=== PATIENT | female | born 1950 | race African-American/Black ===

== ENCOUNTER 2017-02-10 18:44 | Emergency (ER) | payer MEDICARE ==
[~2017-02-10] VITALS: Ht 170.2 cm; Wt 90.7 kg
[2017-02-10 19:41] LABS: BASO # 0.1 x10^3/uL (0.0-0.2); BASO % 1 % (0-3); EOS % 3 % (0-3); HEMATOCRIT 39.2 % (36.0-47.0); HEMOGLOBIN 13.5 g/dL (12.0-15.5); LYMPH # 3.5 x10^3/uL (1.0-4.8); LYMPH % 37 % (24-48); MEAN CORPUSCULAR HEMOGLOBIN 28 pg (25-35); MEAN CORPUSCULAR HGB CONC 34 g/dL (31-37); MEAN CORPUSCULAR VOLUME 81 fL (79-100); MONO % 8 % (0-9); NEUT % 52 % (31-73); PLATELET COUNT 299 x10^3/uL (140-400); RED BLOOD COUNT 4.84 x10^6/uL (3.50-5.40); RED CELL DISTRIBUTION WIDTH 14.3 % (11.5-14.5); WHITE BLOOD COUNT 9.5 x10^3/uL (4.0-11.0)
[2017-02-10 19:51] LABS: PROTHROMBIN TIME PATIENT 12.3 SEC (11.7-14.0)
--- NOTE | 2017-02-10 19:57 | PHYS DOC ---
Past Medical History Past Medical History: High Cholesterol, Hypertension Past Surgical History: Hysterectomy Alcohol Use: None Drug Use: None Adult General Chief Complaint Chief Complaint: SYNCOPE HPI HPI Patient is a 66 year old female presenting to the emergency department for evaluation of fall head pain syncope. Patient was having spasms in her right leg and was prescribed tinazidine and nabumetone by her primary care physician. She says she took a half a pill yesterday of nabumetone and did okay with that however she took a full pill today and has been extremely fatigued. She tried standing up and walking and when she stood up she passed out and fell forward landing on her forehead. She has an abrasion to her forehead and she says that her tetanus is up-to-date. She has bilateral lower extremity weakness worse on the right side. Patient denies any neck chest abdomen back or extremity pain. She is somewhat tired and keeps her eyes closed. I looked up the side effect profile for both and they both can cause fatigue and somnolence. Review of Systems Review of Systems Constitutional: Denies fever or chills [] Eyes: Denies change in visual acuity, redness, or eye pain [] HENT: Denies nasal congestion or sore throat [] Respiratory: Denies cough or shortness of breath [] Cardiovascular: No additional information not addressed in HPI [] GI: Denies abdominal pain, nausea, vomiting, bloody stools or diarrhea [] : Denies dysuria or hematuria [] Musculoskeletal: Denies back pain or joint pain [] Integument: Denies rash or skin lesions [] Neurologic: Denies headache. + focal weakness. No sensory changes [] Allergies Allergies Allergies Coded Allergies Type Severity Reaction Last Updated Verified Penicillins Allergy Unknown 02/10/17 Yes prochlorperazine Allergy Unknown 02/10/17 Yes Physical Exam Physical Exam Constitutional: Well developed, well nourished, no acute distress, non-toxic appearance. [] HENT: Normocephalic, atraumatic, bilateral external ears normal, oropharynx moist, no oral exudates, nose normal. [] Eyes: PERRLA, EOMI, conjunctiva normal, no discharge. [] Neck: Normal range of motion, no tenderness, supple, no stridor. [] Cardiovascular:Heart rate regular rhythm, no murmur [] Lungs & Thorax: Bilateral breath sounds clear to auscultation [] Abdomen: Bowel sounds normal, soft, no tenderness, no masses, no pulsatile masses. [] Skin: Warm, dry, no erythema, no rash. [] Back: No tenderness, no CVA tenderness. [] Extremities: No tenderness, no cyanosis, no clubbing, ROM intact, no edema. [] Neurologic: Alert and oriented X 3. normal sensory function. Very poor effort when lifting his legs. Patient is barely able to lift her legs off the bed and she had no ability to lift her right leg up off the bed. Current Patient Data Vital Signs Vital Signs Date Time Temp Pulse Resp B/P (MAP) Pulse Ox O2 Delivery O2 Flow Rate FiO2 02/10/17 19:15 98.4 64 12 146/80 (102) 100 Room Air 98.4 Lab Values Laboratory Tests Test 02/10/17 19:13 02/10/17 19:44 White Blood Count 9.5 x10^3/uL (4.0-11.0) Red Blood Count 4.84 x10^6/uL (3.50-5.40) Hemoglobin 13.5 g/dL (12.0-15.5) Hematocrit 39.2 % (36.0-47.0) Mean Corpuscular Volume 81 fL (79-100) Mean Corpuscular Hemoglobin 28 pg (25-35) Mean Corpuscular Hemoglobin Concent 34 g/dL (31-37) Red Cell Distribution Width 14.3 % (11.5-14.5) Platelet Count 299 x10^3/uL (140-400) Neutrophils (%) (Auto) 52 % (31-73) Lymphocytes (%) (Auto) 37 % (24-48) Monocytes (%) (Auto) 8 % (0-9) Eosinophils (%) (Auto) 3 % (0-3) Basophils (%) (Auto) 1 % (0-3) Neutrophils # (Auto) 5.0 x10^3uL (1.8-7.7) Lymphocytes # (Auto) 3.5 x10^3/uL (1.0-4.8) Monocytes # (Auto) 0.7 x10^3/uL (0.0-1.1) Eosinophils # (Auto) 0.2 x10^3/uL (0.0-0.7) Basophils # (Auto) 0.1 x10^3/uL (0.0-0.2) Prothrombin Time 12.3 SEC (11.7-14.0) Prothrombin Time INR 1.0 (0.8-1.1) PTT 26 SEC (24-38) Sodium Level 139 mmol/L (136-145) Potassium Level 3.7 mmol/L (3.5-5.1) Chloride Level 103 mmol/L (98-107) Carbon Dioxide Level 30 mmol/L (21-32) Anion Gap 6 (6-14) Blood Urea Nitrogen 18 mg/dL (7-20) Creatinine 1.0 mg/dL (0.6-1.0) Estimated GFR (Cockcroft-Gault) 67.5 BUN/Creatinine Ratio 18 (6-20) Glucose Level 136 mg/dL (70-99) H Calcium Level 9.5 mg/dL (8.5-10.1) Magnesium Level 2.2 mg/dL (1.8-2.4) Total Bilirubin 0.5 mg/dL (0.2-1.0) Aspartate Amino Transferase (AST) 26 U/L (15-37) Alanine Aminotransferase (ALT) 27 U/L (14-59) Alkaline Phosphatase 67 U/L (46-116) Creatine Kinase 370 U/L (26-192) H Troponin I Quantitative < 0.017 ng/mL (0.000-0.055) Total Protein 7.2 g/dL (6.4-8.2) Albumin 3.6 g/dL (3.4-5.0) Albumin/Globulin Ratio 1.0 (1.0-1.7) Thyroid Stimulating Hormone (TSH) 7.884 uIU/mL (0.358-3.74) H Ethyl Alcohol Level < 10 mg/dL (0-10) Urine Collection Type Unknown Urine Color Yellow Urine Clarity Clear Urine pH 6.5 Urine Specific [place] >=1.030 Urine Protein Negative mg/dL (NEG-TRACE) Urine Glucose (UA) Negative mg/dL (NEG) Urine Ketones (Stick) Negative mg/dL (NEG) Urine Blood Negative (NEG) Urine Nitrite Negative (NEG) Urine Bilirubin Negative (NEG) Urine Urobilinogen Dipstick 0.2 mg/dL (0.2 mg/dL) Urine Leukocyte Esterase Moderate (NEG) Urine RBC Occ /HPF (0-2) Urine WBC 11-20 /HPF (0-4) Urine Squamous Epithelial Cells Mod /LPF Urine Bacteria Few /HPF (0-FEW) Urine Hyaline Casts Many /HPF Urine Opiates Screen Neg (NEG) Urine Methadone Screen Neg (NEG) Urine Barbiturates Neg (NEG) Urine Phencyclidine Screen Neg (NEG) Urine Amphetamine/Methamphetamine Neg (NEG) Urine Benzodiazepines Screen Neg (NEG) Urine Cocaine Screen Neg (NEG) Urine Cannabinoids Screen Neg (NEG) Urine Ethyl Alcohol Neg (NEG) Laboratory Tests 02/10/17 19:13 Laboratory Tests 02/10/17 19:13 EKG EKG Normal sinus rhythm at 61 bpm with normal axis no obvious ST elevation or depression and normal T waves. Radiology/Procedures Radiology/Procedures CT head without contrast Indication: Fall and abrasions. Axial imaging through the brain was performed without contrast. PQRS STATEMENT One or more of the following individualized dose reduction techniques were utilized for this study: 1.Automated exposure control. 2.Adjustment of the mA and/orkVaccording to patient size. 3.Use of iterative reconstruction technique. The ventricles and sulci are within normal limits. No sulcal effacement, midline shift or hemorrhage is detected. Cisterns are patent. Visualized paranasal sinuses are clear. Impression: No acute intracranial process is detected. Electronically signed by: Eldon Rodrigues MD (February 10, 2017 20:25:36) DICTATED and SIGNED BY: ELDON RODRIGUES MD DATE: 02/10/172024 Course & Med Decision Making Course & Med Decision Making She likely passed out because of the medications and now she likely has a concussion from hitting her head. She is ambulating in the emergency department. She is slightly slow but says that she is near her baseline and is comfortable going home. Her repeat exam is much improved and she now has full strength of her lower extremities and she is much more awake. I told her to go down on both of her medicines or possibly eliminate one and she can follow with her primary care provider in 3-4 days to go over her symptoms and medications. Her labs and CT both appear normal and her urine is slightly concentrated with white blood cells but no obvious urinary tract infection. Patient aware and agreeable with plan for discharge and verbalized understanding of the need for short-term follow-up and strict ER return precautions discussed worsening pain fevers vomiting or general concerns. Dragon Disclaimer Dragon Disclaimer This electronic medical record was generated, in whole or in part, using a voice recognition dictation system. Departure Departure Impression: Primary Impression: CHI (closed head injury) Additional Impression: Fatigue Disposition: 01 HOME, SELF-CARE Condition: GOOD Referrals: ROBERTA GAMING (PCP) Patient Instructions: Concussion and Brain Injury Additional Instructions: Both the nabumetone and tinazidine can cause fatigue. You should likely go down on both or eliminate 1. You can take tylenol and or ibuprofen for pain. Follow with your doctor next week to ensure improvement. Thank you! Problem Qualifiers Primary Impression: CHI (closed head injury) Encounter type: initial encounter Qualified Codes: S09.90XA - Unspecified injury of head, initial encounter AYAN MATHEWS DO February 10, 2017 19:56
[2017-02-10 20:04] LABS: BILIRUBIN,URINE NEGATIVE (NEG); GLUCOSE,URINE NEGATIVE (NEG); NITRITE,URINE NEGATIVE (NEG); PH,URINE 6.5; PROTEIN,URINE NEGATIVE (NEG-TRACE); UROBILINOGEN,URINE 0.2 mg/dL (0.2 mg/dL)
[2017-02-10 20:06] LABS: CALCIUM 9.5 mg/dL (8.5-10.1); GFR 67.5; POTASSIUM 3.7 mmol/L (3.5-5.1)
[2017-02-10 20:08] LABS: BARBITURATES NEG (NEG); BENZODIAZEPINES NEG (NEG); CANNABINOIDS NEG (NEG); COCAINE NEG (NEG); METHADONE NEG (NEG); OPIATES NEG (NEG); PHENCYCLIDINE NEG (NEG)
[2017-02-10 20:11] LABS: ALBUMIN 3.6 g/dL (3.4-5.0); MAGNESIUM 2.2 mg/dL (1.8-2.4); TOTAL BILIRUBIN 0.5 mg/dL (0.2-1.0); TOTAL PROTEIN 7.2 g/dL (6.4-8.2)
[2017-02-10 20:27] LABS: BACTERIA,URINE FEW /HPF (0-FEW); RBC,URINE OCC /HPF (0-2); SQUAMOUS EPITHELIAL CELL,UR MOD /LPF
--- NOTE | 2017-02-10 20:27 | RAD ---
CT head without contrast Indication: Fall and abrasions. Axial imaging through the brain was performed without contrast. PQRS STATEMENT One or more of the following individualized dose reduction techniques were utilized for this study: 1.Automated exposure control. 2.Adjustment of the mA and/orkVaccording to patient size. 3.Use of iterative reconstruction technique. The ventricles and sulci are within normal limits. No sulcal effacement, midline shift or hemorrhage is detected. Cisterns are patent. Visualized paranasal sinuses are clear. Impression: No acute intracranial process is detected. Electronically signed by: Eldon Rodrigues MD (February 10, 2017 20:25:36)
[2017-02-10 21:02] VITALS: BP 169/94
--- NOTE | 2017-02-11 11:24 | EKG ---
[facility] [address] [place] [address] Test Date: 2017-02-10 Test Time: 19:15:21 Pat Name: LARA MEDRANO Department: Room: Gender: F Tick Inspector: TW EMT : 1950 Requested By: AYAN MATHEWS Order Number: [id number] Reading MD: Kyle Lindsay Measurements Intervals [place] Rate: 61 P: 47 NM: 210 QRS: 10 QRSD: 86 T: 22 QT: 424 QTc: 433 Interpretive Statements SINUS RHYTHM Electronically Signed On 02-13-2017 14:55:53 CDT by Kyle Lindsay
== END 2017-02-10 21:02 | disposition home or self-care (01) ==
LOC: ER 18:44
DX: S09.90XA Unspecified injury of head, initial encounter (principal); E78.00 Pure hypercholesterolemia, unspecified; R53.83 Other fatigue; R53.1 Weakness; R55 Syncope and collapse; I10 Essential (primary) hypertension; Z90.710 Acquired absence of both cervix and uterus; Z88.0 Allergy status to penicillin; Z88.8 Allergy status to other drugs, medicaments and biological substances; W19.XXXA Unspecified fall, initial encounter; Y93.89 Activity, other specified; Y92.89 Other specified places as the place of occurrence of the external cause; Y99.8 Other external cause status
CPT/HCPCS: 36415; 70450; 80053; 80305; 80320; 81001; 82550; 83735; 84443; 84484; 85027; 85610; 85730; 87086; 93005; G0480; G0481; 99285-25